=== PATIENT | female | born 1985 | race Two or more races ===

== ENCOUNTER 2025-02-19 20:17 | Emergency (ER) | payer OTHER, SELFPAY ==
[2025-02-19 20:23] VITALS: BP 147/116
[2025-02-19] MEDS: TYLENOL 1000 MG PO (21:37)
[2025-02-19 21:50] LABS: HCG, Urine Qualitative Screen Negative
[2025-02-19] MEDS: TORADOL 15 MG IM (22:36)
[2025-02-19 22:37] VITALS: BP 133/92
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
== END 2025-02-19 22:42 | disposition home or self-care (01) ==
LOC: EMR 20:17
PROVIDERS: Physician Assistant; EMERGENCY PHYSICIAN Emergency Medicine; FAMILY PHYSICIAN Family Medicine
DX: S06.0XAA Concussion with loss of consciousness status unknown, initial encounter (principal); S50.02XA Contusion of left elbow, initial encounter; W22.09XA Striking against other stationary object, initial encounter; W19.XXXA Unspecified fall, initial encounter
CPT/HCPCS: 96372; 99284; 70450; 73080; 81025